=== PATIENT | female | born 2000 | race Caucasian/White ===

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

== ENCOUNTER 2020-04-01 17:30 | Emergency (ER) | payer OTHER ==
[2020-04-01 19:21] VITALS: BP 131/83; PULSE 70; RESP 18; TEMP 97.9
--- NOTE | 2020-04-01 19:41 | XR ---
EXAMINATION TYPE: XR chest 1V DATE OF EXAM: 04/01/2020 COMPARISON: NONE HISTORY: Cough. TECHNIQUE: Single frontal view of the chest is obtained. FINDINGS: There is mild bibasilar hazy opacity. No pleural effusion, or pneumothorax seen. The card iac silhouette size is within normal limits. The osseous structures are intact. IMPRESSION: Mild bibasilar atelectasis versus infiltrate.
--- NOTE | 2020-04-01 19:50 | ED ---
General Adult HPI - General Chief complaint: Shortness of Breath Stated complaint: SOB Time Seen by Provider: 04/01/20 18:59 Source: patient, RN notes reviewed, old records reviewed Mode of arrival: ambulatory Limitations: no limitations - History of Present Illness Initial comments: 19-year-old female presents emergency department today with chief complaint of shortness of breath. She was diagnosed with Bill 19 infection on 03/23. Patient reports she was feeling better and then last night started having fever and complaints of chest tightness and shortness of breath today. Patient states that she does have history of asthma. She denies any other significant past medical history. Patient reports that she's had no medicine for fever today. - Related Data Previous Rx's Medication Instructions Recorded Azithromycin [Zithromax Z-pack (6 250 mg PO DIRECTED #6 tab 04/01/20 tabs)] predniSONE [Deltasone] 20 mg PO DIRECTED #12 tab 04/01/20 Allergies Allergy/AdvReac Type Severity Reaction Status Date / Time No Known Allergies Allergy Verified 04/01/20 18:24 Review of Systems ROS Statement: Those systems with pertinent positive or pertinent negative responses have been documented in the HPI. ROS Other: All systems not noted in ROS Statement are negative. Past Medical History Past Medical History: Asthma History of Any Multi-Drug Resistant Organisms: None Reported Past Surgical History: Adenoidectomy Past Psychological History: No Psychological Hx Reported Smoking Status: Never smoker Past Alcohol Use History: None Reported Past Drug Use History: None Reported General Exam - General Exam Comments Initial Comments: 19-year-old female. Alert and oriented 2. No distress. Limitations: no limitations General appearance: alert, in no apparent distress Head exam: Present: atraumatic, normocephalic, normal inspection Eye exam: Present: normal appearance, PERRL, EOMI. Absent: scleral icterus, conjunctival injection, periorbital swelling ENT exam: Present: normal exam, mucous membranes moist Neck exam: Present: normal inspection. Absent: tenderness, meningismus, lymphadenopathy Respiratory exam: Present: normal lung sounds bilaterally. Absent: respiratory distress, wheezes, rales, rhonchi, stridor Cardiovascular Exam: Present: regular rate, normal rhythm, normal heart sounds. Absent: systolic murmur, diastolic murmur, rubs, gallop, clicks GI/Abdominal exam: Present: soft, normal bowel sounds. Absent: distended, tenderness, guarding, rebound, rigid Extremities exam: Present: normal inspection, full ROM, normal capillary refill. Absent: tenderness, pedal edema, joint swelling, calf tenderness Back exam: Present: normal inspection Neurological exam: Present: alert, oriented X3, CN II-XII intact Psychiatric exam: Present: normal affect, normal mood Skin exam: Present: warm, dry, intact, normal color. Absent: rash Course Vital Signs 04/01/20 04/01/20 18:18 19:20 Temperature 98.2 F 97.9 F Pulse Rate 83 70 Respiratory 20 18 Rate Blood Pressure 133/85 131/83 O2 Sat by Pulse 98 98 Oximetry Medical Decision Making - Medical Decision Making 19-year-old female alert and oriented 3 presents with shortness of breath. Was diagnosed with croup at 19 infection this week. At this time patient's oxygen level is 99 200% on room air. No wheezing. She appears clinically well. Patient chest x-ray shows bibasilar atelectasis versus infiltrate. Patient has had no Covid 19 infection and discussed this with her symptomatic of this. I discussed with a concern that asthma can write the Patient for short prescription steroid and to cover for the infiltrate on chest x-ray for any bacterial infection with azithromycin. I discussed the Patient needs to state warranting. Alternating Tylenol Motrin for fever and pains. All questions answered. - Radiology Data Radiology results: report reviewed Mild by his basilar atelectasis versus infiltrate. Disposition Clinical Impression: COVID-19, Pulmonary infiltrates on CXR Disposition: HOME SELF-CARE Condition: Good Instructions (If sedation given, give patient instructions): Viral Pneumonia (ED) Additional Instructions: Please use medication as discussed. Please follow up with family doctor if symptoms have not improved over the next two days. Pt should use inhaler as ne eded. Alternate motrin and tylenol. Please return to the emergency room if your symptoms increase or worsen or for any other concerns. Prescriptions: predniSONE [Deltasone] 20 mg PO DIRECTED #12 tab Azithromycin [Zithromax Z-pack (6 tabs)] 250 mg PO DIRECTED #6 tab Is patient prescribed a controlled substance at d/c from ED?: No Referrals: Aquilino Patel MD [Primary Care Provider] - 1-2 days Time of Disposition: 19:48
[2020-04-01] MEDS ORDERED: AZITHROMYCIN 500 MG TAB PO STA (19:57)
[2020-04-01] MEDS ORDERED: predniSONE 50 MG TAB PO STA (19:57)
== END 2020-04-01 20:14 | disposition home or self-care (01) ==
LOC: EC 17:30
DX: U07.1 COVID-19 (principal); R91.8 Other nonspecific abnormal finding of lung field
CPT/HCPCS: 71045; 99285; J7512

== ENCOUNTER 2020-04-02 09:43 | Emergency (ER) | payer OTHER ==
[2020-04-02 09:47] VITALS: PULSE 67; TEMP 97
[2020-04-02 10:08] VITALS: RESP 20
--- NOTE | 2020-04-02 10:10 | ED ---
General Adult HPI - General Chief complaint: Shortness of Breath Stated complaint: SOB Time Seen by Provider: 04/02/20 09:54 Source: patient, RN notes reviewed Mode of arrival: ambulatory Limitations: no limitations - History of Present Illness Initial comments: 19-year-old female presents emergency Department chief complaint of shortness of breath. Patient was diagnosed with covid. Last week. Patient states she was seen last night hand x-ray and which they found to have possible infiltrate. Patient reports no fever currently she states she had fever fairly after diagnosis states that has resolved or sense. She does have a history of asthma has tried her inhaler a few times. She has waves of pain when she presses on her chest but otherwise no other symptoms no exertional symptoms only pain or leg swelling. denies any chance . - Related Data Previous Rx's Medication Instructions Recorded Azithromycin [Zithromax Z-pack (6 250 mg PO DIRECTED #6 tab 04/01/20 tabs)] predniSONE [Deltasone] 20 mg PO DIRECTED #12 tab 04/01/20 Allergies Allergy/AdvReac Type Severity Reaction Status Date / Time No Known Allergies Allergy Verified 04/02/20 09:47 Review of Systems ROS Statement: Those systems with pertinent positive or pertinent negative responses have been documented in the HPI. ROS Other: All systems not noted in ROS Statement are negative. Past Medical History Past Medical History: Asthma, Pneumonia Additional Past Medical History / Comment(s): covid History of Any Multi-Drug Resistant Organisms: None Reported Past Surgical History: Adenoidectomy Past Psychological History: No Psychological Hx Reported Smoking Status: Never smoker Past Alcohol Use History: None Reported Past Drug Use History: None Reported General Exam Limitations: no limitations General appearance: alert, in no apparent distress Head exam: Present: atraumatic, normocephalic, normal inspection Eye exam: Present: normal appearance, PERRL, EOMI. Absent: scleral icterus, conjunctival injection, periorbital swelling Neck exam: Present: normal inspection. Absent: tenderness, meningismus, lymphadenopathy Respiratory exam: Present: normal lung sounds bilaterally. Absent: respiratory distress, wheezes, rales, rhonchi, stridor Cardiovascular Exam: Present: regular rate, normal rhythm, normal heart sounds. Absent: systolic murmur, diastolic murmur, rubs, gallop, clicks GI/Abdominal exam: Present: soft, normal bowel sounds. Absent: distended, tenderness, guarding, rebound, rigid Neurological exam: Present: alert, oriented X3 Course Vital Signs 04/02/20 04/02/20 04/02/20 09:44 10:08 10:17 Temperature 97.0 F L 97.0 F L Pulse Rate 67 67 Respiratory 18 20 20 Rate Blood Pressure 145/84 123/75 O2 Sat by Pulse 98 98 Oximetry Medical Decision Making - Medical Decision Making Patient x-ray was reviewed. Vitals have been stable she has no signs of acute distress. Patient does feel symptomatic though she has no hypoxia. Patient is stable for discharge she will have close follow-up and return parameters were discussed she agrees to close monitoring at home and return for worsening symptoms. Disposition Clinical Impression: COVID-19 Disposition: HOME SELF-CARE Condition: Stable Instructions (If sedation given, give patient instructions): Upper Respiratory Infection (ED) Additional Instructions: Please return to the Emergency Department if symptoms worsen or any other concerns. Is patient prescribed a controlled substance at d/c from ED?: No Referrals: Aquilino Patel MD [Primary Care Provider] - 1-2 days Time of Disposition: 10:10
[2020-04-02 10:18] VITALS: BP 123/75
== END 2020-04-02 10:18 | disposition home or self-care (01) ==
LOC: EC 09:43
DX: U07.1 COVID-19 (principal); J45.909 Unspecified asthma, uncomplicated; Z79.51 Long term (current) use of inhaled steroids
CPT/HCPCS: 99284

== ENCOUNTER → 2021-01-03 | Outpatient (CLI) | payer OTHER | END | disposition home or self-care (01) | LOC: LABWHC1 14:00 | PROVIDERS: ATTEND Emergency Medicine | DX: Z20.822 Contact with and (suspected) exposure to COVID-19 (principal) | CPT/HCPCS: 87635; C9803 ==

== ENCOUNTER → 2021-04-26 | Outpatient (CLI) | payer OTHER | END | disposition home or self-care (01) | LOC: LABWHC1 08:29 | PROVIDERS: ATTEND Emergency Medicine | DX: Z20.822 Contact with and (suspected) exposure to COVID-19 (principal) | CPT/HCPCS: 87635 ==

== ENCOUNTER → 2021-04-27 | Outpatient (CLI) | payer OTHER | END | disposition home or self-care (01) | LOC: LABWHC1 08:30 | PROVIDERS: ATTEND Emergency Medicine | DX: Z20.822 Contact with and (suspected) exposure to COVID-19 (principal) | CPT/HCPCS: 87635 ==